=== PATIENT | male | born 1950 | race Caucasian/White ===

== ENCOUNTER 2017-05-30 07:11 | Emergency (ER) | payer MEDICARE ==
[~2017-05-30] VITALS: Ht 175.3 cm; Wt 90.0 kg
[~2017-05-30 07:11] MED LIST: ACETIC ACID2 % OT; ALBUTEROL4 M1 PO; AMLODIPINE2.5 MG PO; ASPIRIN EC81 MG PO; ATENOL/CHLOR1 TA2 PO; ATENOLOL25 MG PO; ATENOLOL50 MG PO; ATROVENT NAS0.03 % NAB; AUGMENTIN875TAB OR; CLONAZEP ODT0.5 MG PO; CLONAZEPAM0.5 M1 PO; CLONAZEPAM0.5 MG PO; DIPHENHYDRAM25 M2 OR; EPIPEN0.3 MG IM; FLEXERIL10 MG OR; FLUOXETINE10 M2 PO; KLONOPIN0.5 MG PO; LEVAQUIN500 MG PO; LISINOP/HCTZ1 TAB PO; LORATADINE10 M1 PO; MEDDOSEPAK OR; NEXIUM40 M1 PO; NORVASC PO; PRAVASTATIN40 MG OR; PREDNISONE5 MG PO; PRILOSEC OTC20 MG OR; PROAIR HFA IN; PROZAC10 MG PO; SIMVASTATIN40 MG OR; SIMVASTATIN40 MG PO; TENORMIN25 MG OR; TOPROL XL25 MG OR; TRAMADOL HCL50 MG PO; ULTRAM50 M1 OR; ZESTRIL OR; ZOCOR20 MG OR; ZPAK PO
[2017-05-30] MEDS ORDERED: AMLODIPINE5 MG PO (07:32)
[2017-05-30] MEDS ORDERED: METOPROLOL SUCC25 MG PO (07:34)
[2017-05-30] MEDS ORDERED: NEXIUM40 M1 PO (07:34)
[2017-05-30 07:36] LABS: HEMATOCRIT 42.3 % (39.0-50.0); HEMOGLOBIN 14.7 g/dl (14.0-18.0); IMMATURE GRANULOCYTES 0.3 % (0.0-1.0); MEAN CORPUSCULAR HGB CONC 34.8 g/L CALC (32.0-36.0); NEUT# 3.79 thou/uL (1.82-7.42); RED BLOOD COUNT 4.6 mill/uL (4.70-6.10); RED CELL DISTRI WIDTH 12.7 % (11.5-15.5)
[2017-05-30 07:54] LABS: ALBUMIN 4.6 g/dL (3.2-5.0); ALKALINE PHOSPHATASE 74 u/l (38-126); ANION GAP 14 (6-22 (CALC)); BILIRUBIN, TOTAL 0.6 mg/dL (0.0-1.4); BUN 12 mg/dL (8-23); BUN/CREATININE RATIO 13 (12-20 (CALC)); CALCIUM 9.8 mg/dL (8.4-10.2); CARBON DIOXIDE 25 mmol/l (22-30); CHLORIDE 107 mmol/l (95-108); CREATININE 0.9 mg/dL (0.7-1.3); GFR > 60 ML/MIN (>=60 (CALC)); GFR FOR AFR.AMER. > 60 ML/MIN (>=60 (CALC)); GLUCOSE 133 mg/dL (82-115); LIPASE 50 u/l (23-300); POTASSIUM 3.9 mmol/l (3.5-5.1); SGOT/AST 24 u/l (19-48); SGPT/ALT 39 u/l (11-66); SODIUM 142 mmol/l (137-146); TOTAL PROTEIN 7.5 g/dL (6.3-8.2)
[2017-05-30 07:56] LABS: INTERNATIONAL NORMALIZED RATIO 0.9 RATIO (0.7-1.3)
[2017-05-30 10:14] VITALS: BP 120/77
== END 2017-05-30 10:14 | disposition home or self-care (01) ==
LOC: ED 07:11
PROVIDERS: Emergency Medicine
DX: R07.9 Chest pain, unspecified (principal); R07.89 Other chest pain; I10 Essential (primary) hypertension; K21.9 Gastro-esophageal reflux disease without esophagitis; R00.2 Palpitations

== ENCOUNTER 2024-02-23 04:50 | Emergency (ER) | payer MEDICARE ==
[~2024-02-23] VITALS: Ht 175.3 cm; Wt 83.0 kg
[~2024-02-23 04:50] MED LIST changes: +AMLODIPINE5 MG PO; +METOPROLOL SUCC25 MG PO; +METOPROLOL SUCC50 MG PO; +MONTELUKAST SOD10 MG PO
[2024-02-23] MEDS ORDERED: PRAVASTATIN40 MG PO (05:35)
[2024-02-23] MEDS ORDERED: EZETIMIBE10 MG PO (05:35)
[2024-02-23] MEDS ORDERED: VOLTAREN - GENE75 MG PO (05:46)
[2024-02-23 05:57] VITALS: BP 141/86
[2024-02-23 05:58] VITALS: BP 141/86
== END 2024-02-23 06:00 | disposition home or self-care (01) ==
LOC: ED 04:50
DX: M79.605 Pain in left leg (principal); I10 Essential (primary) hypertension